=== PATIENT | female | born 1980 | race Caucasian/White ===

== ENCOUNTER → 2016-07-21 | Day surgery (SDC) | payer MEDICAID ==
[~2016-07-21] MED LIST: BUPIVACAINE 0.25% 30 ML VIAL ONE; CEFAZOLIN 1 GM VIAL ONE; DEXAMETHASONE 4 MG/ML VIAL IV ONE; FENTANYL 100 MCG/2 ML VIAL IV PRN; FENTANYL 100 MCG/2 ML VIAL ONE; FENTANYL 250 MCG/5 ML VIAL IV ONE; GLYCOPYRROLATE 1 MG VIAL IM ONE; HYDROmorphone 1 MG INJECTION IV PRN; KETOROLAC TROMETH 30 MG/ML VIAL IM ONE; LABETALOL 20 MG/4 ML SYRINGE IV PRN; LIDOCAINE 100 MG PFS IV ONE; MEPERIDINE 25 MG/ML TUBEX IV PRN; METOCLOPRAMIDE 10 MG/2 ML VIAL IV ONE; MIDAZOLAM 2 MG/2 ML VIAL IV ONE; NEOSTIGMINE 1 MG/1 ML (1:1000) INJ 10 ML MDV IM ONE; ONDANSETRON HCL 4 MG ODT TAB PO PRN; ONDANSETRON HCL 4 MG/2 ML VIAL IV ONE; ONDANSETRON HCL 4 MG/2 ML VIAL IV PRN; PROMETHAZINE 25 MG/ML VIAL IV PRN; PROPOFOL 200 MG/20 ML VIAL IV ONE; ROCURONIUM 50 MG/5 ML VIAL IV ONE; SUCCINYLCHOLINE 20 MG/1 ML INJ 10 ML MDV IV ONE; hydrALAZINE 20 MG/ML VIAL IV PRN
--- NOTE | 2016-07-21 07:04 | SC.ANESPOS ---
Post-Anesthesia Note LOC: [facility] Post-Anesthesia Assessment: Awake, Returned to Baseline, Hemodynamically Stable , Pain Control Adequate Phase I & II Recovery Complete: Yes Apparent Anesthesia Complication: No : N PACU Discharge Time: 10:15 - Vital Signs Blood Pressure: 148/71 Pulse: 81 Resp Rate: 16 O2 Sat: 100 Temp: 97.8 F - Comments Anesthesia Discharge Time Report Time 10:15
--- NOTE | 2016-07-21 07:32 | HIM.ANES ---
Anesthesia Evaluation & Plan Diagnoses: UNSPECIFIED OVARIAN CYST, LEFT SIDE (07/21/16) EXCESSIVE AND FREQUENT MENSTRUATION WITH REGULAR CYCLE (07/21/16) - Focused Review of Systems Cardiac History: No: Hx Cardiac Disorders HEENT: No: Other HEENT Problems Gastrointestinal: Yes: Hx Gastrointestinal Disorders, Hx Endoscopy Neurological/Musculoskeletal: Yes: Hx Back Pain (LUMBAR) No: Hx Neurological Disorders Psychological: No Hx Mental/Emotional Disorders Blood/Autoimmune: Yes: Hx Anemia (LOW IRON LEVEL) No: Hx AIDS, Hx Hepatitis (type) Smoking Status: Former smoker Surgical History: Yes: Cholecystectomy (2008) Other Surgical History: BTL - Focused Physical Exam Mallampati: Class II Thyromental Distance: Greater than 3 Neck: Full Range of Motion Dental: Normal - no significant findings Cardiovascular/Chest: Normal Respiratory: Lungs clear Any problems with anesthesia, including nausea and vomiting?: No Any relatives with a history of Malignant Hyperthermia?: No Beta Marisa given (if appropriate): N/A Does the patient have a history of Motion Sickness-: Yes Other: Allergies Allergy/AdvReac Type Severity Reaction Status Date / Time No Known Allergies Allergy Verified 07/21/16 07:07 Home Medications Medication Instructions Recorded Last Taken Type Dicyclomine HCl [Bentyl] 10 mg PO Q6H PRN 07/20/16 07/19/16 History Norethindrone AC-Eth Estradiol 1 each PO DAILY 07/20/16 07/19/16 History [Junel] Height and Weight Patient's height 5 ft 7 in Patient's weight 214 lb 14.4 oz BMI 33.6 Vital Signs Temperature 99.0 F 07/21/16 07:07 Pulse Rate 99 07/21/16 07:07 Respiratory Rate 16 07/21/16 07:07 Blood Pressure 122/80 07/21/16 07:07 Pulse Oxygen Saturation 99 07/21/16 07:07 - Anesthetic Plan Anesthesia Type: General ASA Class: 2 -: I have examined this patient and reviewed the medical record. The patient has been assessed prior to anesthesia. Risks and benefits of anesthesia and anesthetic technique options have been discussed and all questions answered. The patient accepts the risk and desires me to proceed with the planned anesthetic.
[2016-07-21 07:45] LABS: LEUKOCYTES/URINE NEG (NEGATIVE); NITRITE/URINE NEG (NEGATIVE); RBC/URINE 0-2 (0-5); URINE OCCULT BLOOD NEG (NEG/TRACE); WBC/URINE 0-2 (0-5)
[2016-07-21 08:25] LABS: BLOOD UREA NITROGEN 10 MG/DL (7-17); CALCIUM 8.9 MG/DL (8.4-10.2); CALCULATED OSMOLALITY 267 MOs/Kg (270-290); CHLORIDE 104 mEq/L (98-107); GLUCOSE 91 MG/DL (70-99); SODIUM LEVEL 139 mEq/L (137-146)
--- NOTE | 2016-07-21 09:16 | HIMOPNOTE ---
DATE OF PROCEDURE: 07/21/16 PRE/POSTOP DIAGNOSIS: Left ovarian cyst, pelvic pain IF CANCER: CLINICAL STAGE: T [] N [] M []; Group Stage:[] PROCEDURE: Operative laparoscopy, left ovarian cystectomy, fulguration of endometriosis FINDINGS: Normal uterus tubes and ovaries, very small simple appearing left ovarian cyst, 1 small focus of endometriosis on the right uterosacral ligament SPECIMEN REMOVED: None EBL: 5 mL TYPE OF ANESTHESIA: General COMPLICATIONS: None NAME OF SURGEON/ASSISTANTS: Richard Reeves MD
--- NOTE | 2016-07-21 09:25 | HIMOPRPT ---
DATE OF PROCEDURE: 07/21/16 PREOPERATIVE DIAGNOSIS: Left ovarian cyst, pelvic pain POSTOPERATIVE DIAGNOSIS: Left ovarian cyst, pelvic pain, endometriosis PROCEDURE: Operative laparoscopy, left ovarian cystectomy, fulguration of endometriosis SURGEON: Richard Reeves MD ANESTHESIOLOGIST: Juan M ANESTHESIA: General ESTIMATED BLOOD LOSS: 5 mL COMPLICATIONS: None DRAINS: None SPECIMENS: None FINDING: Normal uterus tubes and ovaries, very small simple appearing left ovarian cyst, 1 small focus of endometriosis on the right uterosacral ligament INDICATIONS FOR PROCEDURE: Persistent left ovarian cyst, mild pelvic pain DESCRIPTION OF PROCEDURE: Patient was taken to the operating room were general anesthesia was achieved without incident. Patient was prepped and draped in the usual sterile fashion. A weighted speculum was placed within the vagina followed by a right angle retractors. The cervix was easily visualized and grasped on the anterior lip using a single-tooth tenaculum. The [place] uterine manipulator was placed and secured. The single-tooth tenaculum was removed as were the retractors. Gloves were exchanged. Attention was then turned to the abdomen. Approximately 4 mL of 0.25% Sensorcaine was placed at the umbilicus. A transverse infraumbilical incision was then made. A 5 mm port was then placed and secured atraumatically using the Optiview trocar. A 10 mm port was then placed on the patient's left side followed by a 5 mm poor on the right side with direct visualization. Initial survey of the abdomen and pelvis showed only a very small approximately 5-10 mm simple appearing left ovarian cyst. The right adnexa was within normal limits. Using the Harmonic scalpel the cyst was opened and drained only a scant amount of clear fluid was noted to be draining from the cyst. There was minimal cyst wall noted so hemostasis was then achieved using the Harmonic scalpel. Continue survey of the pelvis showed a small focus of what appeared to be endometriosis on the right uterosacral ligament. This was ablated using the Harmonic scalpel. Good hemostasis was noted and there was no damage to any other structures in the area. Further survey did show normal adnexal tissue and normal bladder tissue. The 2 lateral ports were removed under direct visualization. Abdominal pressure was allowed to decrease and good hemostasis was seen and both port sites. The central port was removed and the remainder of the CO2 gas was allowed to escape from the abdomen. The port sites were secured using 4 0 Monocryl as well as for 0 Vicryl. Dermabond was placed to the port sites as well to complete the closure. Approximately 4 mL of 0.25% Sensorcaine was then infiltrated into the port sites. The uterine manipulator and the Mack catheter were removed. Patient tolerated the procedure well was taken to recovery in good condition all sponge lap needle counts were correct x2. IVF: 1800 ml UOP : 400 ml
[2016-07-21 10:34] VITALS: PULSE 81; TEMP 97.8
[2016-07-21 15:06] VITALS: BP 148/71
== END ==
LOC: SDC 06:48
PROVIDERS: ATTEND Obstetrics & Gynecology
PROC: 0UB14ZZ Excision of Left Ovary, Percutaneous Endoscopic Approach (ICD-10-PCS; principal; 2016-07-21 08:30)
DX: N83.202 Unspecified ovarian cyst, left side (principal); N80.3 Endometriosis of pelvic peritoneum; N92.0 Excessive and frequent menstruation with regular cycle; Z87.891 Personal history of nicotine dependence; Z90.49 Acquired absence of other specified parts of digestive tract
CPT/HCPCS: 58662; 80048; 81001; 81025; 85027; 86850; 86900; 86901; J0330; J0690; J1100; J1885; J2001; J2250; J2405; J2710; J2765; J3010; J3490; S0020